=== PATIENT | female | born 1990 | race Hispanic/Latino ===

== ENCOUNTER 2018-03-18 15:59 | Emergency (ER) | payer OTHER ==
[~2018-03-18] VITALS: Ht 152.4 cm; Wt 76.2 kg
[~2018-03-18 15:59] MED LIST: BENTYL10 M1 PO; IBUPROFEN600 M1 PO; MOBIC15 M1 PO; ROBAXIN500 M1 PO; VALTREX1000 MG PO; VIBRAMYCIN100 MG PO; ZOFRAN4 M2 SL
--- NOTE | 2018-03-18 18:08 | ED HAND/WRIST INJURY COMPLAINT ---
History of Present Illness General Chief Complaint: General Adult Stated Complaint: FINGER NAIL INJURY Source: patient Exam Limitations: no limitations Vital Signs & Intake/Output Vital Signs & Intake/Output Vital Signs Date Time Temp Pulse Resp B/P B/P Pulse O2 O2 Flow FiO2 Mean Ox Delivery Rate 03/18 1928 98.5 57 20 155/76 96 Room Air 03/18 1703 97 03/18 1629 97.2 65 18 130/83 98 Room Air Allergies Coded Allergies: Penicillins (Intermediate, FACIAL SWELLING 03/28/16) lidocaine (Intermediate, FACIAL SWELLING 03/28/16) Reconcile Medications Ibuprofen 600 MG TABLET 1 TAB PO TID Back Pain with food Ibuprofen 600 MG TABLET 1 TAB PO TID PRN PAIN with food Methocarbamol (Robaxin) 500 MG TABLET 1 TAB PO BID Mucle Pain Triage Note: RECEIVED 27 YO FEMALE C/O SHE INJURED HER LEFT PINKY NAIL ABOUT 45 MINUTES [employer]. PT REPORTS IT WAS BLEEDING, NO LONGER. NAIL APPEARS TO BE PARTIALLY DISATTACHED. Triage Nurses Notes Reviewed? yes : No Patient currently breastfeeds: No HPI: Patient presents for evaluation of left little finger nail avulsion injury that occurred earlier today. Past History Travel History Traveled to [place] past 21 day No Medical History Any Pertinent Medical History? see below for history Neurological: NONE EENT: NONE Cardiovascular: NONE Respiratory: asthma Gastrointestinal: NONE Hepatic: NONE Renal: NONE Musculoskeletal: NONE Psychiatric: NONE Endocrine: NONE Surgical History Surgical History: non-contributory Psychosocial History What is your primary language Uzbek Tobacco Use: Never used Family History Hx Contributory? No Review of Systems Review of Systems Constitutional: Reports: no symptoms. EENTM: Reports: no symptoms. Respiratory: Reports: no symptoms. Cardiovascular: Reports: no symptoms. GI: Reports: no symptoms. Genitourinary: Reports: no symptoms. Musculoskeletal: Reports: no symptoms. Skin: Reports: see HPI. Neurological/Psychological: Reports: no symptoms. Hematologic/Endocrine: Reports: no symptoms. Immunologic/Allergic: Reports: no symptoms. All Other Systems: Reviewed and Negative Physical Exam Physical Exam Hand Left: see below Hand Right: normal inspection Comments: Gen.: Well-nourished, well-developed, no acute respiratory distress. Head: Normocephalic, atraumatic. Eyes: Normal inspection bilaterally Ears: Normal inspection bilaterally Nose: Normal inspection Throat/mouth : Moist mucosa Neck: Supple, full range of motion, no goiter Heart: Regular rate and rhythm Lungs: Quiet respirations Back: Normal range of motion Extremities: Left little finger: Partial nail avulsion Neurologic: Cranial nerves grossly intact, speech is clear Skin: warm and dry Psychiatric: Calm, cooperative, no apparent delusions or hallucinations Progress Differential Diagnosis: contusion, dislocation, fracture, sprain Plan of Care: Orders Procedure Date/time Status XRY-FINGERS, LEFT 03/18 1807 Active Comments: Given patient's significant allergy to lidocaine, patient has elected to treat her partial nail avulsion conservatively. I have applied a metal foam finger splint to protect the area. Departure Departure Disposition: HOME OR SELF CARE Condition: Stable Clinical Impression Primary Impression: Fingernail avulsion, partial Qualifiers: Encounter type: initial encounter Qualified Code: S61.309A - Unspecified open wound of unspecified finger with damage to nail, initial encounter Referrals: Rod Brice DO (PCP/Family) Additional Instructions: Follow-up with your primary care physician in one week to reevaluate your fingernail. [id number] ibuprofen 600 mg every 6 hours as needed for pain. Return if any concerns or sudden worsening. Thank you for choosing the [facility] for your care. It was a pleasure to serve you today. Ruy Aguirre M.D. [facility] Departure Forms: Customer Survey General Discharge Information Procedures Splinting Location: LEFT FIFTH FINGER Pre-Made Type: metal Splint Applied By: splint applied by me Pre-Proc Neuro Vasc Exam: normal Post-Proc Neuro Vasc Exam: normal
--- NOTE | 2018-03-18 18:40 | RADIOLOGY REPORT ---
EXAMINATION: XR FINGER, LEFT CLINICAL INFORMATION: Partial nail avulsion COMPARISON: None TECHNIQUE: 3 plain film views of the left fifth digit. FINDINGS: The bones and soft tissues are normal. No fracture. Alignment is anatomic. Joint spaces are maintained. IMPRESSION: No acute bony abnormalities.
[2018-03-18 19:28] VITALS: BP 155/76
== END 2018-03-18 19:42 ==
LOC: ERH 15:59
DX: S61.317A Laceration without foreign body of left little finger with damage to nail, initial encounter (principal); X58.XXXA Exposure to other specified factors, initial encounter; Y92.9 Unspecified place or not applicable; Y93.9 Activity, unspecified
CPT/HCPCS: 73140-LT